=== PATIENT | male | born 2005 | race Caucasian/White ===

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

== ENCOUNTER 2023-10-02 16:37 | Emergency (ER) | payer BC, SELFPAY ==
[2023-10-02 16:41] VITALS: BP 120/63; PULSE 75; RESP 16; TEMP 36.6; O2SAT 99
--- NOTE | 2023-10-02 16:49 | ED.GENADUL_ITS ---
Discharge Plan Disposition Patient Disposition: Home Condition: Stable Discharge Details Clinical Impression: Lumbar back pain Primary Care Provider: Unknown,Unknown ED Provider: Edgar Jacques Home Meds and New Rx's Prescriptions: No Action No Known Home Meds Discharge Instructions Instructions: Low Back Pain ED Additional Instructions: You were seen in the emergency department for your left lumbar back pain, you likely have lumbar back spasm. You have no emergent symptoms of vertebral fracture or spinal emergency. Please use therapeutic dosing of Tylenol (acetamenophen) & Advil (ibuprofen) in an alternating fashion as follows: Take 1000mg of Tylenol every 6 hours without missing doses- that is 4 times per day. Intermediate in between the Tylenol dosings, take 400-600mg of Advil also on a 6 hour schedule, that is also 4 times per day. The daily maximum dosing of Tylenol is 4000mg, and the daily maximum dosing of Advil is 2400mg. This is safe to do for weeks. Please note that some common cold medications & prescription pain medications may contain acetamenophen and you need to read OTC drug labels and factor that in to maximum daily dosings. Follow-up with physical therapy visits to learn exercises - To both resolve the situation as well as strengthening exercises that will prevent further recurrence. Please refrain from lifting more than 15 pounds while in acute significant pain. Please return to the emergency department for severe increase in pain, inability to move the lower extremities, urinary retention, bowel incontinence, numbness in the groin. Stand Alone Forms: Physical Therapy Referral, Work Release Discharge Data Discharge Date/Time-TO BE ENTERED AT DEPARTURE: 10/02/23 17:09 HPI General Date/Time Provider Initiated Documentation: 10/02/23 16:49 . HPI Narrative: 18 year-old male presents to ED today by POV/ambulating with a chief complaint of left lumbar back pain with onset this morning at 0400 while at work, was holding something and twisted- has happened prior. Quality described as sharp pain in left lumbar back, no radiation to left leg pain, urinary changes, bowel changes, groin numbness, fever. Severity is described as moderate. Palliating factors include nothing specific- refuses muscle relaxers here in ED. Provoking factors include certain movements. Events leading up to the incident/Associated Symptoms: Patient requesting work restrictions. Patient not anticoagulated. Related Data Home Medications Medication Instructions Recorded Confirmed Unknown [No Known Home Meds] 10/02/23 10/02/23 Allergies Allergy/AdvReac Type Severity Reaction Status Date / Time No Known Allergies Allergy Unverified 10/02/23 16:45 General Stated Complaint: Orthopedic VANDANA: 4 Review of Systems All systems reviewed & are unremarkable except as noted in HPI and below Exam Narrative Exam Narrative: GENERAL APPEARANCE: Well-nourished, non-toxic, awake and alert, atraumatic, no acute distress. SKIN: Warm, pink, dry, intact, without rashes/lesions/ulcerations. HEAD: Normocephalic, atraumatic, normal hair distribution for gender/age. EYES: Normal conjunctiva, no exudates on lids/lashes. ENT: Nares patent, no circumoral cyanosis, no facial swelling NECK: Supple, trachea midline, painless cervical ROM. LUNGS/CHEST: Non-labored respirations, normal A/P diameter, symmetrical expansion, no chest wall deformity HEART (CV/PV): No peripheral edema, no JVD. ABDOMEN: Soft, non-distended, no guarding. MSK: Normal ROM, no swelling/deformity to bilateral UEs or LEs, moving all extremities without weakness, no cyanosis, spine midline without tenderness, normal curvature, left paraspinal lumbar tenderness without crepitus/step-offs, NV intact with stregnth 5/5 in left lower extremity, sensation intact, ambulating normally NEURO: Mental Status AAOx4 - alert to person, place, time, events No facial droop, no forehead involvement. Motor: No focal weakness - strength 5/5 in bilateral UEs and LEs, proximal and distal, symmetric. Sensory: sensation intact to light touch globally. Gait normal: patient ambulated without ataxia into ED room. PSYCH: euthymic, cooperative, pleasant, appropriate speech Course Vital Signs Vital signs: Vital Signs Temperature 36.6 C 10/02/23 16:41 Pulse 75 10/02/23 16:41 Respiratory Rate 16 10/02/23 16:41 Blood Pressure 120/63 10/02/23 16:41 Pulse Oximetry 99 10/02/23 16:41 Temperature 36.6 C 10/02/23 16:41 Pulse 75 10/02/23 16:41 Respiratory Rate 16 10/02/23 16:41 Respiratory Effort Normal, Non-Labored 10/02/23 16:45 Blood Pressure 120/63 10/02/23 16:41 Pulse Oximetry 99 10/02/23 16:41 Medical Decision Making This dictation utilizes [id number] dictation software and may contain unedited grammatical errors. 18 year-old male presents to ED today by POV/ambulating with a chief complaint of left lumbar back pain with onset this morning at 0400 while at work, was holding something and twisted- has happened prior. Quality described as sharp pain in left lumbar back, no radiation to left leg pain, urinary changes, bowel changes, groin numbness, fever. Severity is described as moderate. Palliating factors include nothing specific- refuses muscle relaxers here in ED. Provoking factors include certain movements. Events leading up to the incident/Associated Symptoms: Patient requesting work restrictions. Patients' medical history: negative, otherwise healthy. Family and social history: noncontributory. Pertinent exam findings / vital signs include MSK: Normal ROM, no swelling/deformity to bilateral UEs or LEs, moving all extremities without weakness, no cyanosis, spine midline without tenderness, normal curvature, left paraspinal lumbar tenderness without crepitus/step-offs, NV intact with stregnth 5/5 in left lower extremity, sensation intact, ambulating normally. Differential / pathologies of concern include lumbar back strain, spasm, sciatica, not vertebral fracture. Diagnostic studies of: -none. Interventions of: -offered adequate course of skeletal muscle relaxers for back pain- patient just wants work restrictions. ED Course/Assessment/Plan: 18-year-old male presents with left lumbar back pain when he moved awkwardly while holding something, states this has happened before in remote history, refuses muscle relaxer, has no concerning symptoms of urinary or bowel changes, no risk factors for spinal epidural abscess and is neurovascular intact in lower extremities, I counseled him on the need for follow-up with physical therapy or possibly orthopedics if pain persists and that he should take it easy at work provided restrictions left less than 15 pounds for the next 3 to 4 days, follow- up with orthopedics or physical therapy for further restrictions. Counseled on strict return criteria for any urinary or bowel changes, groin numbness. Findings not consistent with vertebral fracture, cauda equina, spinal epidural abscess. Disposition of lumbar back pain. Patient verbalized understanding of the plan and return to ED criteria and engaged in shared decision making. Medical Records Medical records reviewed: Yes I reviewed the patient's medical records. Quality:SDOH Health Related Social Needs: No Data to Display PFSH All Active Problems (Updated 10/02/23 @ 16:57 by WELLINGTON Beck) Lumbar back pain (Acute) Social History Smoking/Tobacco Use Status: Never Smoking risk assessment performed?: Yes Alcohol Intake: never Drug use: Never Substance use type: does not use Do you feel safe at home: Yes Do you feel safe in your relationship?: Yes
[2023-10-02 17:08] VITALS: BP 120/63; PULSE 75; RESP 16; TEMP 36.6; O2SAT 99
== END 2023-10-02 17:09 | disposition home or self-care (01) ==
LOC: ER 17:15
PROVIDERS: Emergency Provider Physician Assistant
DX: M54.50 Low back pain, unspecified (principal)
CPT/HCPCS: 99282; 99283